=== PATIENT | male | born 1965 | race Caucasian/White ===

== ENCOUNTER 2023-07-04 06:23 | Inpatient (IN) | payer OTHER ==
[2023-07-04 07:10] LABS: #Basophils 0.1 thou/uL (0.0-0.2); #Eosinphils 0.2 thou/uL (0.0-0.7); #Monocytes 0.4 thou/uL (0.11-0.59); #Neutrophils 4.8 thou/uL (1.40-6.50); %Basophils 0.7 % (0.0-1.0); %Eosinophils 2.5 % (0.0-10.0); %Lymphocytes 19.9 % (21.0-51.0); %Monocytes 6.1 % (0.0-10.0); %Neutrophils 69.5 % (42.0-75.0); Hemoglobin 13.9 g/dL (14.0-18.0); Mean Corpuscular HGB CONC 33.9 g/dL (32.0-36.0); Mean Corpuscular Hemoglobin 30.2 pg (27.0-31.0); Mean Corpuscular Volume 88.9 fl (78.0-98.0); Mean Platelet Volume 9.8 fL (7.4-10.4); Platelet Count 180 10x3/uL (130-400); Red Blood Cell (RBC) Count 4.61 mill/uL (4.70-6.10); White Blood Cell (WBC) Count 6.9 10x3/uL (4.8-10.8)
[2023-07-04] MEDS ORDERED: HYDROcodone/Acetaminophen 10/325 mg Tablet ONE (07:20)
[2023-07-04 07:34] LABS: ALT (SGPT) 21 U/L (8-55); AST (SGOT) 26 U/L (5-34); Albumin 3.5 g/dL (3.5-5.0); Alkaline Phosphatase 68 U/L (40-110); Anion Gap 12 mmol/L (10-20); BUN (Urea Nitrogen) 12 mg/dL (8.4-25.7); Bilirubin, Total 0.5 mg/dL (0.2-1.2); Calc. Creatinine Clearance 0 mL/min (70-130); Calcium 8.4 mg/dL (7.8-10.44); Carbon Dioxide 21 mmol/L (22-29); Chloride 105 mmol/L (98-107); Estimated GFR 71; Globulin 2.9 g/dL (2.4-3.5); Glucose 150 mg/dL (70-105); Potassium 3.4 mmol/L (3.5-5.1); Protein, Total 6.4 g/dL (6.0-8.3); Sodium 135 mmol/L (136-145)
[2023-07-04] MEDS ORDERED: Ondansetron PF 4 MG/2 ML Vial ONE ×2 (08:36→11:04)
[2023-07-04] MEDS ORDERED: Morphine 4 MG/ML VIAL ONE (08:36)
[2023-07-04] MEDS ORDERED: Iopamidol-370 76% 500 ML MDV (1 ML CHARGE) ONE (09:14)
[2023-07-04] MEDS ORDERED: Fentanyl 250 MCG/5 ML VIAL ONE (10:35)
[2023-07-04] MEDS ORDERED: HYDROmorphone 0.5 MG/0.5 ML SYRINGE ONE (10:35)
[2023-07-04] MEDS ORDERED: Morphine 2 MG/ML VIAL SLOW IVP PRN (10:36)
[2023-07-04] MEDS ORDERED: Ipratropium/Albuterol 3 ML NEB NEB PRN (10:36)
[2023-07-04] MEDS ORDERED: hydrALAZINE 20 MG/ML VIAL SLOW IVP PRN (10:36)
[2023-07-04] MEDS ORDERED: Ondansetron PF 4 MG/2 ML Vial IVP PRN (10:36)
[2023-07-04] MEDS ORDERED: Bupivacaine 0.25% HCL 30 ML VIAL ONE (10:36)
[2023-07-04] MEDS ORDERED: EPINEPHrine 1 MG/ML AMP ONE (10:36)
[2023-07-04] MEDS ORDERED: Thrombin 5000 UNITS/5 ML VIAL ONE (10:36)
[2023-07-04] MEDS ORDERED: Morphine 4 MG/ML VIAL SLOW IVP PRN (10:36)
[2023-07-04] MEDS ORDERED: Vancomycin 1 GM VIAL ONE (10:38)
[2023-07-04] MEDS ORDERED: Cyclobenzaprine 10 MG TAB PO PRN ×2 (10:39→15:01)
[2023-07-04] MEDS ORDERED: Sodium Chloride 0.9% 100 ML ONE (10:46)
[2023-07-04] MEDS ORDERED: CEFAZOLIN 2 GM VIAL ONE (10:46)
[2023-07-04] MEDS ORDERED: PROPOFOL 200 MG/20 ML VIAL ONE (11:04)
[2023-07-04] MEDS ORDERED: Lidocaine 1% PF 5 ML VIAL ONE (11:04)
[2023-07-04] MEDS ORDERED: NEOSTIGMINE 3 MG/3 ML SYR 3 MG/3 ML SYRINGE ONE (11:04)
[2023-07-04] MEDS ORDERED: Glycopyrrolate 0.2 MG/ML 5 ML SYRINGE ONE (11:04)
[2023-07-04] MEDS ORDERED: Rocuronium Bromide 10 MG/ML (10ML VIAL) ONE (11:04)
[2023-07-04] MEDS ORDERED: Acetaminophen 500 MG TAB PO SCH (12:00)
[2023-07-04] MEDS ORDERED: traMADol HCl 50 MG TAB PO PRN (12:43)
[2023-07-04] MEDS ORDERED: fentaNYL 50 mcg/mL 1 mL Vial ONE ×3 (14:43→16:23)
[2023-07-04] MEDS ORDERED: diphenhydrAMINE 25 MG CAP PO PRN (14:56)
[2023-07-04] MEDS ORDERED: Acetaminophen 325 MG TAB PO PRN (14:56)
[2023-07-04] MEDS ORDERED: Diazepam 5 MG TAB PO PRN (15:00)
[2023-07-04] MEDS ORDERED: HYDROcodone/Acetaminophen 5/325 mg Tablet PO PRN (15:00)
[2023-07-04] MEDS ORDERED: HYDROmorphone 2 MG/ML VIAL SLOW IVP PRN (15:01)
[2023-07-04] MEDS ORDERED: Ondansetron HCl/PF 4 MG/2 ML Vial IVP PRN (15:01)
[2023-07-04] MEDS ORDERED: Promethazine HCl 25 MG/ML VIAL IM PRN (15:01)
[2023-07-04 16:31] VITALS: BMI 28.2
[2023-07-04] MEDS: Pregabalin 50 MG CAP PO SCH ×2 (16:38→20:03)
[2023-07-04] MEDS: Sodium Chloride 0.9% 1,000 ML IV SCH (16:55)
[2023-07-04] MEDS: Morphine 2 MG/ML VIAL SLOW IVP PRN ×2 (17:52→20:05)
[2023-07-04] MEDS: CEFAZOLIN 2 GM in Sodium Chloride 0.9% 100 ML IVPB SCH (17:53)
[2023-07-04] MEDS ORDERED: traMADol HCl 50 MG TAB PO SCH (18:00)
[2023-07-04] MEDS: Acetaminophen/Codeine 30-300mg Tablet PO PRN (18:35)
[2023-07-04] MEDS: Senokot S 8.6-50 MG TAB PO SCH (20:04)
[2023-07-04] MEDS: Famotidine/PF 20 mg/2ml Vial SLOW IVP SCH (20:04)
[2023-07-04] MEDS: HYDROcodone/Acetaminophen 10/325 mg Tablet PO PRN (23:52)
[2023-07-05] MEDS: HYDROcodone/Acetaminophen 10/325 mg Tablet PO PRN ×3 (03:28→15:02)
[2023-07-05] MEDS: CEFAZOLIN 2 GM in Sodium Chloride 0.9% 100 ML IVPB SCH ×3 (03:29→18:18)
[2023-07-05] MEDS: Sodium Chloride 0.9% 1,000 ML IV SCH (03:31)
[2023-07-05] MEDS: Morphine 2 MG/ML VIAL SLOW IVP PRN (05:35)
[2023-07-05 06:34] LABS: #Monocytes 1.1 thou/uL (0.11-0.59); #Neutrophils 13.7 thou/uL (1.40-6.50); %Basophils 0.1 % (0.0-1.0); %Lymphocytes 4.2 % (21.0-51.0); %Neutrophils 87.9 % (42.0-75.0); Hematocrit 36.3 % (42.0-52.0); Hemoglobin 12.5 g/dL (14.0-18.0); Mean Corpuscular HGB CONC 34.4 g/dL (32.0-36.0); Mean Corpuscular Hemoglobin 30.3 pg (27.0-31.0); Mean Corpuscular Volume 88.1 fl (78.0-98.0); Platelet Count 145 10x3/uL (130-400); Red Blood Cell (RBC) Count 4.12 mill/uL (4.70-6.10); White Blood Cell (WBC) Count 15.6 10x3/uL (4.8-10.8)
[2023-07-05 06:54] LABS: INR-International Normal Ratio 1.2; PTT 29.2 sec (22.9-36.1); Prothrombin Time 15.6 sec (12.0-14.7)
[2023-07-05 06:56] LABS: Anion Gap 10 mmol/L (10-20); BUN (Urea Nitrogen) 13 mg/dL (8.4-25.7); Calc. Creatinine Clearance 114 mL/min (70-130); Calcium 8.2 mg/dL (7.8-10.44); Carbon Dioxide 25 mmol/L (22-29); Chloride 105 mmol/L (98-107); Estimated GFR 87; Glucose 128 mg/dL (70-105); Potassium 4.1 mmol/L (3.5-5.1); Sodium 136 mmol/L (136-145)
[2023-07-05] MEDS: Pregabalin 50 MG CAP PO SCH ×3 (08:24→21:10)
[2023-07-05] MEDS: Senokot S 8.6-50 MG TAB PO SCH ×2 (08:25→21:11)
[2023-07-05] MEDS: Polyethylene Glycol 3350 17 GM Packet PO SCH (08:26)
[2023-07-05] MEDS: Famotidine/PF 20 mg/2ml Vial SLOW IVP SCH ×2 (08:26→21:11)
[2023-07-06] MEDS: CEFAZOLIN 2 GM in Sodium Chloride 0.9% 100 ML IVPB SCH ×3 (01:29→17:18)
[2023-07-06] MEDS: HYDROcodone/Acetaminophen 10/325 mg Tablet PO PRN ×2 (06:40→11:39)
[2023-07-06] MEDS: Pregabalin 50 MG CAP PO SCH ×3 (08:28→20:44)
[2023-07-06] MEDS: Senokot S 8.6-50 MG TAB PO SCH ×2 (08:28→20:45)
[2023-07-06] MEDS: Famotidine/PF 20 mg/2ml Vial SLOW IVP SCH ×2 (08:28→20:45)
[2023-07-06] MEDS: Polyethylene Glycol 3350 17 GM Packet PO SCH (08:29)
[2023-07-06 09:57] LABS: #Eosinphils 0.1 thou/uL (0.0-0.7); #Monocytes 0.7 thou/uL (0.11-0.59); #Neutrophils 8.2 thou/uL (1.40-6.50); %Basophils 0.3 % (0.0-1.0); %Eosinophils 0.6 % (0.0-10.0); %Lymphocytes 15.2 % (21.0-51.0); %Monocytes 6.3 % (0.0-10.0); %Neutrophils 77.2 % (42.0-75.0); Hematocrit 37.6 % (42.0-52.0); Hemoglobin 12.5 g/dL (14.0-18.0); Mean Corpuscular HGB CONC 33.2 g/dL (32.0-36.0); Mean Corpuscular Hemoglobin 30.4 pg (27.0-31.0); Mean Corpuscular Volume 91.5 fl (78.0-98.0); Mean Platelet Volume 10.1 fL (7.4-10.4); Platelet Count 134 10x3/uL (130-400); RBC Distribution Width 13.1 % (11.5-14.5); Red Blood Cell (RBC) Count 4.11 mill/uL (4.70-6.10); White Blood Cell (WBC) Count 10.7 10x3/uL (4.8-10.8)
[2023-07-06] MEDS: Acetaminophen/Codeine 30-300mg Tablet PO PRN (17:18)
[2023-07-07] MEDS: HYDROcodone/Acetaminophen 10/325 mg Tablet PO PRN (00:27)
[2023-07-07] MEDS: CEFAZOLIN 2 GM in Sodium Chloride 0.9% 100 ML IVPB SCH ×2 (00:37→11:39)
[2023-07-07 06:19] LABS: #Eosinphils 0.2 thou/uL (0.0-0.7); #Monocytes 0.7 thou/uL (0.11-0.59); #Neutrophils 4.3 thou/uL (1.40-6.50); %Basophils 0.3 % (0.0-1.0); %Eosinophils 3.3 % (0.0-10.0); %Monocytes 9.7 % (0.0-10.0); %Neutrophils 60.4 % (42.0-75.0); Hematocrit 32.8 % (42.0-52.0); Mean Corpuscular HGB CONC 33.5 g/dL (32.0-36.0); Mean Corpuscular Hemoglobin 30.1 pg (27.0-31.0); Mean Corpuscular Volume 89.9 fl (78.0-98.0); Mean Platelet Volume 10.2 fL (7.4-10.4); Platelet Count 107 10x3/uL (130-400); RBC Distribution Width 12.9 % (11.5-14.5); Red Blood Cell (RBC) Count 3.65 mill/uL (4.70-6.10)
[2023-07-07] MEDS: Pregabalin 50 MG CAP PO SCH ×3 (09:40→21:00)
[2023-07-07] MEDS: Senokot S 8.6-50 MG TAB PO SCH ×2 (09:40→20:59)
[2023-07-07] MEDS: Famotidine/PF 20 mg/2ml Vial SLOW IVP SCH (09:40)
[2023-07-07] MEDS: Acetaminophen/Codeine 30-300mg Tablet PO SCH ×4 (09:41→20:59)
[2023-07-07] MEDS: Polyethylene Glycol 3350 17 GM Packet PO SCH (09:42)
[2023-07-07 11:30] LABS: INR-International Normal Ratio 1.1; PTT 27.9 sec (22.9-36.1); Prothrombin Time 14.2 sec (12.0-14.7)
[2023-07-07] MEDS: Cephalexin 250 MG CAP PO SCH ×2 (12:45→18:41)
[2023-07-08] MEDS: Cephalexin 250 MG CAP PO SCH ×3 (00:27→12:29)
[2023-07-08] MEDS: Acetaminophen/Codeine 30-300mg Tablet PO SCH ×4 (00:28→15:17)
[2023-07-08] MEDS: Polyethylene Glycol 3350 17 GM Packet PO SCH (08:24)
[2023-07-08] MEDS: Pregabalin 50 MG CAP PO SCH ×2 (08:25→15:16)
[2023-07-08] MEDS: Senokot S 8.6-50 MG TAB PO SCH (08:25)
[2023-07-08 11:42] LABS: #Eosinphils 0.3 thou/uL (0.0-0.7); #Monocytes 0.7 thou/uL (0.11-0.59); #Neutrophils 3.9 thou/uL (1.40-6.50); %Basophils 0.3 % (0.0-1.0); %Eosinophils 5.1 % (0.0-10.0); %Lymphocytes 20.8 % (21.0-51.0); %Monocytes 11.1 % (0.0-10.0); %Neutrophils 62.4 % (42.0-75.0); Hematocrit 33.9 % (42.0-52.0); Hemoglobin 11.4 g/dL (14.0-18.0); Mean Corpuscular HGB CONC 33.6 g/dL (32.0-36.0); Mean Corpuscular Hemoglobin 30.2 pg (27.0-31.0); Mean Corpuscular Volume 89.9 fl (78.0-98.0); Mean Platelet Volume 9.9 fL (7.4-10.4); Platelet Count 126 10x3/uL (130-400); RBC Distribution Width 12.7 % (11.5-14.5); Red Blood Cell (RBC) Count 3.77 mill/uL (4.70-6.10); White Blood Cell (WBC) Count 6.2 10x3/uL (4.8-10.8)
[2023-07-08 12:54] VITALS: BP 116/68; TEMP 98.2
== END 2023-07-08 16:18 | disposition home or self-care (01) | DRG 459 ==
LOC: ERS 06:23 → SURG A 10:00 → SDC 10:25 → SURG A 10:36
PROVIDERS: ADMIT Surgery; ATTEND Surgery
PROC: 0QS004Z Reposition Lumbar Vertebra with Internal Fixation Device, Open Approach (ICD-10-PCS; principal; 2023-07-04)
PROC: 00C30ZZ Extirpation of Matter from Intracranial Epidural Space, Open Approach (ICD-10-PCS; 2023-07-04)
PROC: 00NY0ZZ Release Lumbar Spinal Cord, Open Approach (ICD-10-PCS; 2023-07-04)
PROC: 0SG1071 Fusion of 2 or more Lumbar Vertebral Joints with Autologous Tissue Substitute, Posterior Approach, Posterior Column, Open Approach (ICD-10-PCS; 2023-07-04)
DX: S32.041A Stable burst fracture of fourth lumbar vertebra, initial encounter for closed fracture (principal); S06.4X0A Epidural hemorrhage without loss of consciousness, initial encounter; G83.4 Cauda equina syndrome; V47.5XXA Car driver injured in collision with fixed or stationary object in traffic accident, initial encounter; M48.061 Spinal stenosis, lumbar region without neurogenic claudication; E66.9 Obesity, unspecified; Z68.28 Body mass index [BMI] 28.0-28.9, adult
CPT/HCPCS: 36415; 36416; 51702; 70450; 71045; 71260; 72125; 72148; 72170; 74177; 80048; 80053; 85025; 85384; 85610; 85730; 86850; 86900; 86901; 96374; 96375; C1713; C1889; G0390; J0171; J1170; J2270; J2272; J2405; J2704; J3010; J3370; J3490; J7050; Q9967; S0020; S0028

== ENCOUNTER 2023-08-14 09:42 | Outpatient (CLI) | payer OTHER | END 2023-08-14 09:43 | disposition home or self-care (01) | LOC: BICRAD 09:42 | PROVIDERS: ATTEND Physician Assistant | DX: S32.001A Stable burst fracture of unspecified lumbar vertebra, initial encounter for closed fracture (principal); Z98.890 Other specified postprocedural states | CPT/HCPCS: 72100 ==

== ENCOUNTER 2023-10-03 09:15 | Outpatient (CLI) | payer OTHER | END 2023-10-03 09:16 | disposition home or self-care (01) | LOC: BICRAD 09:15 | PROVIDERS: ATTEND Surgery | DX: S32.001A Stable burst fracture of unspecified lumbar vertebra, initial encounter for closed fracture (principal) | CPT/HCPCS: 72100 ==